=== PATIENT | female | born 1995 | race Caucasian/White ===

== ENCOUNTER 2021-01-17 08:12 | Day surgery (SDC) | payer OTHER ==
[2021-01-10 13:49] VITALS: BMI 18.2
[2021-01-17] MEDS ORDERED: PROPOFOL 20 ML ONE (09:26)
[2021-01-17] MEDS ORDERED: MIDAZOLAM HCL 2 MG/2 ML SINGLE DOSE VIAL ONE (09:26)
[2021-01-17] MEDS ORDERED: ceFAZolin SODIUM 1 GM VIAL ONE (10:01)
[2021-01-17] MEDS ORDERED: ONDANSETRON 4 MG/2 ML VIAL ONE (10:03)
[2021-01-17] MEDS ORDERED: DEXAMETHASONE SOD PHOSPHATE 4 MG/1 ML VIAL ONE (10:03)
[2021-01-17] MEDS ORDERED: LIDOCAINE HCL 2% (50ML VIAL) NR ONE (10:06)
[2021-01-17] MEDS ORDERED: KETOROLAC TROMETHAMINE 30 MG/1 ML VIAL ONE (10:09)
[2021-01-17] MEDS ORDERED: GUM MASTIC/STORAX/MSAL/ALCOHOL 1 DRP DROPSBTL MC ONE (10:21)
[2021-01-17 10:49] VITALS: PULSE 66
[2021-01-17 11:15] VITALS: TEMP 97.7
[2021-01-17 11:32] VITALS: BP 112/70
== END 2021-01-17 11:32 | disposition home or self-care (01) ==
LOC: FASU 08:12
PROVIDERS: ATTEND Orthopaedic Surgery Hand Surgery
PROC: 0LN50ZZ Release Right Lower Arm and Wrist Tendon, Open Approach (ICD-10-PCS; principal; 2021-01-17 10:06)
DX: M65.831 Other synovitis and tenosynovitis, right forearm (principal)
CPT/HCPCS: 84703